=== PATIENT | female | born 1970 | race Two or more races ===

== ENCOUNTER 2021-08-16 15:57 | Outpatient (REF) | payer OTHER, SELFPAY ==
--- NOTE | ~2021-08-16 | MM_ITS ---
EXAMINATION: MM SCREENING DIGITAL BREAST TOMOSYNTHESIS, BILATERAL CLINICAL INFORMATION: Screening. Asymptomatic. The lifetime risk of breast cancer based on the Tyrer-Cuzick Model is 11.7%. COMPARISON: Mammography: None TECHNIQUE: Digital breast tomosynthesis is performed in both the craniocaudal and mediolateral oblique views along with computer-aided detection (CAD). Synthesized 2D images are generated from the tomosynthesis. FINDINGS: There are scattered areas of fibroglandular density (ACR BI-RADS breast composition Category b). There are some regions of asymmetric density within the left breast but which on tomosynthesis views are seen to represent superimposition of fibroglandular tissue. No suspicious right breast findings identified. MM/MM tomosynthesis screening BI IMPRESSION: No mammographic evidence of malignancy. ASSESSMENT: BI-RADS 1: Negative. RECOMMENDATION: Routine annual mammography screening. This patient's information was entered into a reminder system with a target due date for their next mammogram.
== END 2021-08-16 15:58 | disposition home or self-care (01) ==
LOC: HO.MAMMO 15:57
PROVIDERS: PCP Physician Assistant; Visit Provider Physician Assistant
DX: Z12.31 Encounter for screening mammogram for malignant neoplasm of breast (principal)
CPT/HCPCS: 77063; 77067

== ENCOUNTER 2021-08-27 08:50 | Outpatient (REF) | payer OTHER, SELFPAY ==
--- NOTE | ~2021-08-27 | XR_ITS ---
EXAMINATION: XR CERVICAL SPINE CLINICAL INFORMATION: Cervicalgia COMPARISON: None TECHNIQUE: 4 views of the cervical spine were obtained. FINDINGS: There are no prevertebral soft tissue or bony abnormalities demonstrated. No compression fractures or subluxations are identified. Alignment is maintained at the atlanto-axial articulation. Mild disc space narrowing noted at C5-C6. No endplate changes are seen. The prevertebral soft tissues are normal. The lung apices are clear. XR/XR cervical spine 3V IMPRESSION: Mild disc space narrowing of C5-C6. Otherwise unremarkable appearance of the cervical spine.
[2021-08-27 09:48] LABS: Hematocrit 40.4 % (37.0-47.0); Hemoglobin 13.1 g/dl (12.0-16.0); Mean Corpuscular HGB Conc 32.4 g/dl (31.0-35.0); Mean Corpuscular Hemoglobin 30.1 pg (27.0-33.0); Mean Corpuscular Volume 92.9 fL (80.0-98.0); Mean Platelet Volume 10.4 fL (9.4-12.3); Platelet Count 297 X10*3/uL (160-400); Red Blood Count 4.35 X10*6/uL (4.20-5.50); Red Cell Distribution Width 11.9 % (11.0-16.0); White Blood Count 3.7 X10*3/uL (4.8-10.8)
[2021-08-27 10:09] LABS: Estimated Average Glucose 126 mg/dL
[2021-08-27 10:10] LABS: Alanine Aminotransferase 28 U/L (0-31); Albumin Level 4.5 g/dL (3.5-5.0); Alkaline Phosphatase 73 U/L (39-117); Anion Gap 10 (12-20); Aspartate Amino Transferase 21 U/L (5-31); Bilirubin Total 0.2 mg/dL (0.0-1.0); Blood Urea Nitrogen 15 mg/dL (9-16); Calcium 9.6 mg/dL (8.4-10.2); Carbon Dioxide 28 mmol/L (22-29); Chloride 105 mmol/L (96-108); Cholesterol 186 mg/dL; Estimated Glomerular Filt Rate > 60; Glucose Fasting 99 mg/dL (60-99); HDL Cholesterol 49 mg/dL; LDL Cholesterol Calculated 116 mg/dl; Potassium 4.2 mmol/L (3.3-5.1); Sodium 139 mmol/L (135-145); Total Protein 7.3 g/dL (6.5-8.0); Triglycerides 106 mg/dL
[2021-08-27 10:25] LABS: Erythrocyte Sedimentation Rate 7 MM/HR (0-20)
[2021-08-27 10:30] LABS: Rheumatoid Factor < 15.0 IU/mL (<15.0); TSH reflex Free T4 1.77 uIU/mL (0.32-4.0)
[2021-08-30 16:06] LABS: Cyclic Citrullinated Peptide <16 UNITS
[2021-08-31 13:46] LABS: Anti Nuclear Antibody Pattern Nuclear, Homogeneous; Anti Nuclear Antibody Screen POSITIVE (NEGATIVE); Anti Nuclear Antibody Titer 1:40 titer
== END 2021-08-27 08:51 | disposition home or self-care (01) ==
LOC: HO.XRAY 08:50
PROVIDERS: PCP Physician Assistant; Visit Provider Physician Assistant
DX: Z13.29 Encounter for screening for other suspected endocrine disorder (principal); Z13.220 Encounter for screening for lipoid disorders; M13.0 Polyarthritis, unspecified; M54.2 Cervicalgia
CPT/HCPCS: 36415; 72040; 80053; 80061; 83036; 84443; 85027; 85652; 86038; 86039; 86200; 86431

== ENCOUNTER → 2021-09-08 12:34 | Outpatient (BNVA) | payer OTHER, SELFPAY | PROVIDERS: PCP Physician Assistant; Referring Provider Physician Assistant; Visit Provider Physician Assistant | DX: Z12.11 Encounter for screening for malignant neoplasm of colon (principal) | CPT/HCPCS: 99202 ==

== ENCOUNTER 2021-09-15 17:00 | Outpatient (RCR) | payer OTHER, SELFPAY ==
--- NOTE | 2021-08-25 13:56 | MHC.PT.EP ---
[facility] [place] Office [place] Office [place] Office [address] Juventino Elaine [address] [phone] F: [phone] F: [phone] F: [phone] F: [phone] Physical Therapy Plan of Care Date of Evaluation: Date of Surgery: Diagnosis: cervicalagia Assessment: 51 y/o RHD female referred to PT with cervicalgia. She reports cervical pain and R UE pain that feels inflammed since 2014 after a fall. 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 Currently she presents with decreased shoulder and cervical AROM, decreased R shoulder/scapular strength, pain at AC joint and pain with horizontal adduction, and increased pain. Recommend PT 2x/week for 5 weeks to address impairments, implement HEP, and optimize functional mobility. She can only come 1x/week. Frequency and Duration: The patient will be seen 1x/week for 5 weeks Short Term Goals: 3 weeks 1. Compliance with HEP 2. Pt will be able to sleep through 50% of the night wiht pain < 3/10 Legislative Assistant Goals: 5 weeks 1. I with HEP and self management of sx 2. Pt will improve R shoulder AROM to 150 to faciliate reaching overhead 3. Pt will be able to lift > 10# with pain < 3/10 Treatment Plan: Modalities to reduce pain, spasms and effusion. Manual therapy to restore motion and function. Therapeutic exercise to improve strength and flexibility. Neuromuscular re-education for posture and balance. Therapeutic activities to return to functional activities of daily living. Electronically signed by: Mecca Cochran PT Please sign and return to therapist. Thank you for your referral.
--- NOTE | 2021-10-12 10:52 | MHC.PT.DC ---
[facility] [place] Office [place] Office [place] Office [address] Juventino Elaine [address] [phone] F: [phone] F: [phone] F: [phone] F: [phone] Physical Therapy Discharge Report Diagnosis: cervicalagia Date of Surgery: Date of Evaluation: 08/25/21 Date of Discharge: 10/12/21 Treatments to Date: 4 Cancellations to Date: 1 No Shows to Date: 1 Discharge Status: Independent with HEP Visit Non-compliance Discharge Summary: D/c at this time secondary to I with HEP and pt did not f/u with further visits. At time of last attended visit, she no longer had pain with sleeping and STG were met. Electronically signed by: Mecca Cochran PT Please sign and return to therapist. Thank you for your referral.
== END 2021-10-12 10:52 | disposition home or self-care (01) ==
LOC: HO.PT 17:00
PROVIDERS: PCP Physician Assistant; Visit Provider Physician Assistant
DX: M54.2 Cervicalgia (principal)
CPT/HCPCS: 97110; 97140; 97162; 97530

== ENCOUNTER → 2021-09-28 09:47 | Outpatient (BNVA) | payer OTHER, SELFPAY | PROVIDERS: PCP Physician Assistant; Visit Provider Internal Medicine Rheumatology | DX: R76.8 Other specified abnormal immunological findings in serum (principal); M51.36 Other intervertebral disc degeneration, lumbar region; M47.812 Spondylosis without myelopathy or radiculopathy, cervical region; Z87.81 Personal history of (healed) traumatic fracture | CPT/HCPCS: 99202 ==